=== PATIENT | male | born 1990 | race Caucasian/White ===

== ENCOUNTER 2017-11-11 07:43 | Emergency (ER) | payer MEDICAID ==
[~2017-11-11] VITALS: Ht 182.9 cm; Wt 95.7 kg
[2017-11-11 07:52] VITALS: Ht 182.9 cm; Wt 95.7 kg
[2017-11-11 10:02] VITALS: BP 130/79
== END 2017-11-11 10:02 | disposition home or self-care (01) ==
LOC: ED 07:43
DX: S39.012A Strain of muscle, fascia and tendon of lower back, initial encounter (principal); V89.2XXA Person injured in unspecified motor-vehicle accident, traffic, initial encounter; Y93.89 Activity, other specified; Y92.488 Other paved roadways as the place of occurrence of the external cause; Y99.8 Other external cause status
CPT/HCPCS: J1885